=== PATIENT | female | born 1970 | race Asian ===

== ENCOUNTER 2017-06-05 17:17 | Emergency (ER) | payer BC ==
[~2017-06-05] VITALS: Ht 142.2 cm; Wt 52.9 kg
[~2017-06-05 17:17] MED LIST: BRIM5DRO3 EACHEYE; DOCU-131 PO; HYDR-3307 PO; IBUP-1223 PO; MELO7.5T31 PO; OMEP-110 PO; ONDA4TAB10 PO; TOPI100T8 PO; TRAM50TA2 PO
[2017-06-05 18:16] LABS: CLUE CELLS NONE SEEN (NONE SEEN); WET PREP WBCS FEW (FEW)
[2017-06-05 18:22] LABS: MICROSCOPIC NOT IND
[2017-06-05 18:29] LABS: CULTURE INDICATED? NO
[2017-06-05 19:42] VITALS: BP 115/78
== END 2017-06-05 19:44 | disposition home or self-care (01) ==
LOC: ED 18:01
DX: K64.4 Residual hemorrhoidal skin tags (principal)
CPT/HCPCS: 81003; 87210; 87491; 87591; 87808; 99284

== ENCOUNTER 2017-06-08 16:33 | Emergency (ER) | payer BC ==
[~2017-06-08] VITALS: Ht 142.2 cm; Wt 52.5 kg
[2017-06-08 16:35] VITALS: BP 149/91
== END 2017-06-08 19:16 | disposition home or self-care (01) ==
LOC: ED 19:00
DX: R10.2 Pelvic and perineal pain (principal); B02.29 Other postherpetic nervous system involvement; E11.9 Type 2 diabetes mellitus without complications
CPT/HCPCS: 99283

== ENCOUNTER 2018-05-15 18:43 | Emergency (ER) | payer BC ==
[~2018-05-15] VITALS: Ht 142.2 cm; Wt 53.9 kg
[2018-05-15 19:00] VITALS: BP 130/78
[2018-05-15] MEDS ORDERED: KETOROLAC 30 MG/1 ML ONE (19:20)
[2018-05-15] MEDS ORDERED: HYDROcodone/APAP 5/325 TABLET ONE (19:20)
--- NOTE | 2018-05-15 19:22 | NUR ---
TAKEN TO RAD
--- NOTE | 2018-05-15 19:27 | NUR ---
PT MEDICATED PER MAR
[2018-05-15] MEDS ORDERED: HYDROcodone/APAP 5/325 TABLET PO ONE (19:30)
[2018-05-15] MEDS ORDERED: KETOROLAC 30 MG/1 ML IM ONE (19:30)
== END 2018-05-15 19:55 | disposition home or self-care (01) ==
LOC: ED 19:00
DX: S43.421A Sprain of right rotator cuff capsule, initial encounter (principal); E11.9 Type 2 diabetes mellitus without complications; M19.90 Unspecified osteoarthritis, unspecified site; W07.XXXA Fall from chair, initial encounter; Y93.89 Activity, other specified; Y92.89 Other specified places as the place of occurrence of the external cause; Y99.8 Other external cause status
CPT/HCPCS: 73030; 96372; 99283; J1885

== ENCOUNTER 2018-10-31 14:36 | Emergency (ER) | payer BC ==
[~2018-10-31] VITALS: Ht 142.2 cm; Wt 52.0 kg
[2018-10-31 17:02] VITALS: BP 120/84
== END 2018-10-31 18:12 | disposition home or self-care (01) ==
LOC: ED 17:27
DX: G44.219 Episodic tension-type headache, not intractable (principal); M54.2 Cervicalgia; H53.8 Other visual disturbances; I10 Essential (primary) hypertension; E11.9 Type 2 diabetes mellitus without complications; M19.90 Unspecified osteoarthritis, unspecified site
CPT/HCPCS: 36415; 70450; 80048; 82040; 85025; 96374; 96375; 99284; J1200; J2765

== ENCOUNTER 2019-02-13 00:18 | Emergency (ER) | payer BC ==
[~2019-02-13] VITALS: Ht 142.2 cm; Wt 55.1 kg
[~2019-02-13 00:18] MED LIST changes: +BUTA-177 PO; -HYDR-3307 PO; +HYDR-36 PO; +MULT-658 PO
[2019-02-13] MEDS ORDERED: MAALOX/HYOSCYAMINE/LIDOCAINE 45 ML BTL PO ONE (01:00)
[2019-02-13] MEDS ORDERED: MAALOX/HYOSCYAMINE/LIDOCAINE 45 ML BTL ONE (01:00)
--- NOTE | 2019-02-13 01:10 | NUR ---
pt in ultrasound at this time.
--- NOTE | 2019-02-13 01:17 | NUR ---
PT RETURNS FROM ULTRASOUND AT THIS TIME. PT MEDICATED PER MAR. POC DISCUSSED. PT AND SPOUSE DENY CURRENT NEEDS. CALL LIGHT ON LAP.
[2019-02-13 01:35] LABS: BASOPHILS # (AUTO) 0.03 x10^3/uL (0-0.1); BASOPHILS % (AUTO) 1 % (0-1); EOSINOPHILS # (AUTO) 0.13 x10^3/uL (0-0.4); EOSINOPHILS % (AUTO) 3 % (1-7); LYMPHOCYTES % (AUTO) 50 % (22-44); MD NO; MEAN CORPUSCULAR HEMOGLOBIN 30.6 pg (27.0-34.8); MEAN CORPUSCULAR HGB CONC 33.9 g/dL (32.4-35.8); MEAN CORPUSCULAR VOLUME 90.2 fL (80-100); MEAN PLATELET VOLUME 6.8 fL (7.4-10.4); MONOCYTES # (AUTO) 0.38 x10^3/uL (0.2-0.8); MONOCYTES % (AUTO) 7 % (2-9); NEUTROPHILS # (AUTO) 2.06 x10^3/uL (1.8-6.8); NEUTROPHILS % (AUTO) 40 % (42-75); PLATELET COUNT 335 x10^3/uL (130-400); RED BLOOD COUNT 4.38 x10^6/uL (3.82-5.3); RED CELL DISTRIBUTION WIDTH 13.1 % (9.6-15.2)
[2019-02-13 01:47] LABS: ALANINE AMINOTRANSFERASE 55 U/L (12-78); ALBUMIN 3.4 g/dL (3.4-5.0); ANION GAP 5 mmol/L (5-15); CALCIUM 8.4 mg/dL (8.5-10.1); CHLORIDE 110 mmol/L (98-107)
[2019-02-13 01:52] LABS: ALKALINE PHOSPHATASE 84 U/L (45-117); BILIRUBIN,TOTAL 0.2 mg/dL (0.2-1.0); CREATININE 0.69 mg/dL (0.55-1.02); TOTAL PROTEIN 6.8 g/dL (6.4-8.2); TROPONIN I < 0.015 ng/mL (0.000-0.045)
[2019-02-13 02:35] LABS: MICROSCOPIC NOT IND
[2019-02-13 02:41] LABS: CULTURE INDICATED? NO
[2019-02-13 02:44] VITALS: BP 118/87
[2019-02-13] MEDS ORDERED: HYDROcodone/APAP 5/325 TABLET ONE (02:53)
[2019-02-13] MEDS ORDERED: HYDROcodone/APAP 5/325 TABLET PO ONE (03:00)
== END 2019-02-13 03:03 | disposition home or self-care (01) ==
LOC: ED 02:57
DX: K21.0 Gastro-esophageal reflux disease with esophagitis (principal); I10 Essential (primary) hypertension; E11.9 Type 2 diabetes mellitus without complications
CPT/HCPCS: 36415; 76700; 80053; 81003; 83690; 84484; 85025; 93005; 99284

== ENCOUNTER 2019-02-22 23:14 | Emergency (ER) | payer BC ==
[~2019-02-22] VITALS: Ht 142.2 cm; Wt 55.5 kg
[2019-02-23] MEDS ORDERED: FAMOTIDINE 20 MG TABLET ONE (00:19)
[2019-02-23] MEDS ORDERED: ONDANSETRON ODT 4 MG ONE (00:19)
[2019-02-23] MEDS ORDERED: HYDROcodone/APAP 5/325 TABLET ONE (00:19)
[2019-02-23] MEDS ORDERED: MAALOX/HYOSCYAMINE/LIDOCAINE 45 ML BTL ONE (00:20)
[2019-02-23] MEDS ORDERED: PANTOPRAZOLE 20MG TABLET ONE (00:21)
[2019-02-23 00:28] LABS: BASOPHILS % (AUTO) 0 % (0-1); EOSINOPHILS # (AUTO) 0.14 x10^3/uL (0-0.4); EOSINOPHILS % (AUTO) 2 % (1-7); LYMPHOCYTES # (AUTO) 2.61 x10^3/uL (1-3.4); LYMPHOCYTES % (AUTO) 40 % (22-44); MD NO; MEAN CORPUSCULAR HGB CONC 33.4 g/dL (32.4-35.8); MEAN CORPUSCULAR VOLUME 89.8 fL (80-100); MEAN PLATELET VOLUME 6.8 fL (7.4-10.4); MONOCYTES # (AUTO) 0.45 x10^3/uL (0.2-0.8); MONOCYTES % (AUTO) 7 % (2-9); NEUTROPHILS # (AUTO) 3.32 x10^3/uL (1.8-6.8); NEUTROPHILS % (AUTO) 51 % (42-75); PLATELET COUNT 335 x10^3/uL (130-400); RED BLOOD COUNT 4.41 x10^6/uL (3.82-5.3); RED CELL DISTRIBUTION WIDTH 13.1 % (9.6-15.2)
[2019-02-23] MEDS ORDERED: MAALOX/HYOSCYAMINE/LIDOCAINE 45 ML BTL PO ONE (00:30)
[2019-02-23] MEDS ORDERED: FAMOTIDINE 20 MG TABLET PO ONE (00:30)
[2019-02-23] MEDS ORDERED: HYDROcodone/APAP 5/325 TABLET PO ONE (00:30)
[2019-02-23] MEDS ORDERED: PANTOPRAZOLE 20MG TABLET PO ONE (00:30)
[2019-02-23] MEDS ORDERED: ONDANSETRON ODT 4 MG PO ONE (00:30)
[2019-02-23 00:37] VITALS: BP 135/94
[2019-02-23 00:40] LABS: ALANINE AMINOTRANSFERASE 30 U/L (12-78); ALBUMIN 3.4 g/dL (3.4-5.0); ANION GAP 6 mmol/L (5-15); CALCIUM 8.2 mg/dL (8.5-10.1); CHLORIDE 115 mmol/L (98-107)
[2019-02-23 00:45] LABS: ALKALINE PHOSPHATASE 59 U/L (45-117); BILIRUBIN,TOTAL 0.4 mg/dL (0.2-1.0); CREATININE 0.75 mg/dL (0.55-1.02); TOTAL PROTEIN 6.5 g/dL (6.4-8.2)
== END 2019-02-23 02:37 | disposition home or self-care (01) ==
LOC: ED 23:59
DX: K29.00 Acute gastritis without bleeding (principal); K21.0 Gastro-esophageal reflux disease with esophagitis; I10 Essential (primary) hypertension; E11.9 Type 2 diabetes mellitus without complications
CPT/HCPCS: 36415; 80053; 83690; 84703; 85025; 93005; 99284; Q0162

== ENCOUNTER 2019-11-07 15:56 | Emergency (ER) | payer BC ==
[~2019-11-07] VITALS: Ht 172.7 cm; Wt 54.0 kg
[~2019-11-07 15:56] MED LIST changes: +HYDR-3246 PO; -HYDR-36 PO
--- NOTE | 2019-11-07 17:01 | NUR ---
PT TO ED FROM [facility] FOR LIGHT-MOD VAGINAL BLEEDING AND PELVIC/LOW BACK PAIN MOSTLY ON L SIDE, STATES SHE IS ON HER PERIOD WHICH STARTED 4 DAYS AGO. PT STATES SHE HAS HAD 2 UA/UC DONE AT HER PRIMARY CARE DOC AND UC WHICH WERE NEGATIVE. PT PLACED ON MONITOR. CALL LIGHT WITHIN REACH. AT BEDSIDE.
[2019-11-07 17:39] LABS: BASOPHILS # (AUTO) 0.02 x10^3/uL (0-0.1); BASOPHILS % (AUTO) 0 % (0-1); EOSINOPHILS # (AUTO) 0.14 x10^3/uL (0-0.4); EOSINOPHILS % (AUTO) 3 % (1-7); LYMPHOCYTES # (AUTO) 2.06 x10^3/uL (1-3.4); LYMPHOCYTES % (AUTO) 37 % (22-44); MD NO; MEAN CORPUSCULAR HEMOGLOBIN 30.5 pg (27.0-34.8); MEAN CORPUSCULAR HGB CONC 34.1 g/dL (32.4-35.8); MEAN CORPUSCULAR VOLUME 89.2 fL (80-100); MONOCYTES # (AUTO) 0.45 x10^3/uL (0.2-0.8); MONOCYTES % (AUTO) 8 % (2-9); NEUTROPHILS # (AUTO) 2.94 x10^3/uL (1.8-6.8); NEUTROPHILS % (AUTO) 52 % (42-75); PLATELET COUNT 317 x10^3/uL (130-400); RED BLOOD COUNT 4.85 x10^6/uL (3.82-5.3); RED CELL DISTRIBUTION WIDTH 13.7 % (9.6-15.2)
--- NOTE | 2019-11-07 17:46 | NUR ---
PT TO US
[2019-11-07 17:48] LABS: ALBUMIN 3.9 g/dL (3.4-5.0); ANION GAP 6 mmol/L (5-15); CALCIUM 8.7 mg/dL (8.5-10.1); CHLORIDE 111 mmol/L (98-107)
--- NOTE | 2019-11-07 18:11 | NUR ---
PT REQUESTING NOT TO HAVE UA DONE, STATES SHE HAS HAD TWO IN THE LAST 3 DAYS THAT WERE BOTH NEGATIVE. JOSE LOPEZ NOTIFIED - OK TO HOLD AT THIS TIME.
[2019-11-07] MEDS ORDERED: SODIUM CHLORIDE FLUSH 10ML SYR IVF ONE (19:00)
[2019-11-07 19:08] VITALS: BP 132/84
== END 2019-11-07 20:52 | disposition home or self-care (01) ==
LOC: ED 17:39
DX: R10.2 Pelvic and perineal pain (principal); N94.4 Primary dysmenorrhea; N93.9 Abnormal uterine and vaginal bleeding, unspecified; I10 Essential (primary) hypertension; E11.9 Type 2 diabetes mellitus without complications; G43.909 Migraine, unspecified, not intractable, without status migrainosus; K21.9 Gastro-esophageal reflux disease without esophagitis; Z88.8 Allergy status to other drugs, medicaments and biological substances
CPT/HCPCS: 36415; 76830; 80048; 82040; 84703; 85025; 99284

== ENCOUNTER 2019-12-10 15:23 | Emergency (ER) | payer BC ==
[~2019-12-10] VITALS: Ht 121.9 cm; Wt 54.5 kg
--- NOTE | 2019-12-10 15:54 | NUR ---
C/O PAIN X1 MONTH, STATES IT GOT WORSE 1 WEEK AGO. PLACED ON VITALS MONITORS, CALL LIGHT WITHIN REACH.
[2019-12-10] MEDS ORDERED: ONDANSETRON 2MG/ML, 2ML ONE (16:00)
[2019-12-10] MEDS ORDERED: MORPHINE SULFATE 4 MG/ML, 1ML ONE ×2 (16:00→17:58)
[2019-12-10] MEDS ORDERED: ONDANSETRON 2MG/ML, 2ML IVPush ONE (16:00)
[2019-12-10] MEDS: MORPHINE SULFATE 4 MG/ML, 1ML IVPush PRN ×2 (16:10→18:00)
[2019-12-10] MEDS ORDERED: NORE0.3513 PO (16:13)
[2019-12-10 16:15] LABS: BASOPHILS # (AUTO) 0.02 x10^3/uL (0-0.1); BASOPHILS % (AUTO) 0 % (0-1); EOSINOPHILS # (AUTO) 0.15 x10^3/uL (0-0.4); EOSINOPHILS % (AUTO) 3 % (1-7); LYMPHOCYTES # (AUTO) 1.95 x10^3/uL (1-3.4); LYMPHOCYTES % (AUTO) 35 % (22-44); MD NO; MEAN CORPUSCULAR HEMOGLOBIN 30.2 pg (27.0-34.8); MEAN CORPUSCULAR HGB CONC 33.3 g/dL (32.4-35.8); MEAN CORPUSCULAR VOLUME 90.7 fL (80-100); MEAN PLATELET VOLUME 6.6 fL (7.4-10.4); MONOCYTES # (AUTO) 0.33 x10^3/uL (0.2-0.8); MONOCYTES % (AUTO) 6 % (2-9); NEUTROPHILS # (AUTO) 3.09 x10^3/uL (1.8-6.8); NEUTROPHILS % (AUTO) 56 % (42-75); PLATELET COUNT 381 x10^3/uL (130-400); RED BLOOD COUNT 4.75 x10^6/uL (3.82-5.3); RED CELL DISTRIBUTION WIDTH 13.6 % (9.6-15.2)
--- NOTE | 2019-12-10 16:22 | NUR ---
PT TRANSPORTED TO US.
[2019-12-10 16:27] LABS: ALANINE AMINOTRANSFERASE 63 U/L (12-78); ALBUMIN 3.8 g/dL (3.4-5.0); ANION GAP 6 mmol/L (5-15); CALCIUM 8.9 mg/dL (8.5-10.1); CHLORIDE 112 mmol/L (98-107); CREATININE 0.81 mg/dL (0.55-1.02)
[2019-12-10 16:29] LABS: MICROSCOPIC NOT IND
[2019-12-10 16:31] LABS: ALKALINE PHOSPHATASE 86 U/L (45-117); BILIRUBIN,TOTAL 0.3 mg/dL (0.2-1.0); TOTAL PROTEIN 7.4 g/dL (6.4-8.2)
--- NOTE | 2019-12-10 16:58 | NUR ---
PT REPORTS PAIN RELIEF AFTER PAIN MEDS, RESTING ON GURLANA, VSS. CALL LIGHT WITHIN REACH.
--- NOTE | 2019-12-10 17:42 | NUR ---
PT TRANSPORTED TO CT.
[2019-12-10] MEDS ORDERED: OMNIPAQUE 350 MG/ML, 100ML BOTTLE ONE (17:52)
[2019-12-10 17:56] VITALS: BP 130/85
== END 2019-12-10 18:42 | disposition home or self-care (01) ==
LOC: ED 17:07
DX: R10.31 Right lower quadrant pain (principal); R10.32 Left lower quadrant pain; I10 Essential (primary) hypertension; E11.9 Type 2 diabetes mellitus without complications; M19.90 Unspecified osteoarthritis, unspecified site; K21.9 Gastro-esophageal reflux disease without esophagitis
CPT/HCPCS: 36415; 74177; 76830; 80053; 81003; 84703; 85025; 96374; 96375; 96376; 99285; J2270; J2405; Q9967

== ENCOUNTER 2020-04-18 12:03 | Outpatient (CLI) | payer BC ==
[~2020-04-18 12:03] MED LIST changes: -HYDR-3246 PO; +HYDR-3248 PO; +NORE0.3513 PO
[2020-04-18] MEDS ORDERED: FUROSEMIDE 20 MG/2 ML ONE (12:53)
== END 2020-04-18 23:59 | disposition home or self-care (01) ==
LOC: RAD 12:03
PROVIDERS: ATTEND Urology
DX: N13.30 Unspecified hydronephrosis (principal)
CPT/HCPCS: 78708; A9562; J1940